=== PATIENT | female | born 2000 | race African-American/Black ===

== ENCOUNTER 2021-09-28 08:50 | Emergency (ER) | payer OTHER ==
[2021-09-28 10:14] LABS: BILIRUBIN,URINE NEGATIVE (NEGATIVE); GLUCOSE, URINE (UA) NEGATIVE (NEGATIVE); KETONES,URINE (UA) NEGATIVE (NEGATIVE); LEUKOCYTE ESTERASE, URINE NEGATIVE (NEGATIVE); NITRITE,URINE NEGATIVE (NEGATIVE); OCCULT BLOOD,URINE SMALL (NEGATIVE); PROTEIN,URINE NEGATIVE (NEGATIVE); UROBILINOGEN,URINE 0.2 (NORMAL) E.U./dL (NORMAL)
[2021-09-28 10:16] LABS: CLARITY,URINE CLEAR (CLEAR); HCG UR QUAL NEGATIVE
[2021-09-28 10:25] LABS: BACTERIA,URINE Rare /HPF (None Seen); SQUAMOUS EPITHELIAL CELL,UR FEW Squamous (<= Few); WBC,URINE 0-3 /HPF (0-5)
--- NOTE | 2021-09-28 14:39 | ED Physician Documentation ---
PD HPI FEMALE - Stated complaint Stated Complaint: ABDOMINAL PX - Chief complaint Chief Complaint: UTI - History obtained from History obtained from: Patient - Additional information Additional information: Patient is 21-year-old female presenting today with vaginal discharge as well as swollen tender mass along her right inguinal area. Reports symptoms ongoing for the last 2 weeks. Does report that she was recently sexually active with new sexual partners a few weeks ago. Denies any fever, chills, chest pain, shortness of breath, abdominal pain, nausea, vomiting, diarrhea, constipation. Review of Systems Ten Systems: 10 systems reviewed and negative Constitutional: denies: Fever Eyes: denies: Loss of vision Ears: denies: Loss of hearing GI: denies: Abdominal Pain : reports: Discharge Skin: denies: Rash PD PAST MEDICAL HISTORY - Present Medications Home Medications: Ambulatory Orders Medication Instructions Recorded Confirmed Doxycycline Hyclate 100 mg PO BID #20 tab 09/28/21 Fluconazole [Diflucan] 1 tablet PO ONCE 1 Days #1 tablet 09/28/21 - Allergies Allergies/Adverse Reactions: Allergies Allergy/AdvReac Type Severity Reaction Status Date / Time No Known Drug Allergies Allergy Verified 09/28/21 09:12 - Social History Does the pt smoke?: No Smoking Status: Never smoker PD ED PE NORMAL - Vitals Vital signs reviewed: Yes - General General: Alert and oriented X 3 - HEENT HEENT: Atraumatic - Neck Neck: Supple, no meningeal sign - Respiratory Respiratory: No respiratory distress - Abdomen Abdomen: Normal bowel sounds - Back Back: No CVA TTP - Extremities Extremities: No deformity PD ED PE EXPANDED - Female Female : Vaginal Discharge, Smalltalk Developer present Results - Vitals Vitals: Vital Signs - 24 hr 09/28/21 09/28/21 09:12 15:18 Temperature 36.9 C Heart Rate 88 74 Respiratory 16 16 Rate Blood Pressure 119/71 114/69 O2 Saturation 100 100 Oxygen O2 Source Room air - Labs Labs: Microbiology 09/28/21 10:14 Wet Prep - Final Genital - Vaginal Laboratory Tests 09/28/21 09/28/21 09:56 13:34 Urine Color YELLOW Urine Clarity CLEAR Urine pH 6.0 Ur Specific [place] 1.020 Urine Protein NEGATIVE Urine Glucose (UA) NEGATIVE Urine Ketones NEGATIVE Urine Occult Blood SMALL H Urine Nitrite NEGATIVE Urine Bilirubin NEGATIVE Urine Urobilinogen 0.2 (NORMAL) Ur Leukocyte Esterase NEGATIVE Urine RBC 6-10 H Urine WBC 0-3 Ur Squamous Epith Cells FEW Squamous Urine Bacteria Rare Ur Microscopic Review INDICATED Urine Culture Comments NOT INDICATED Urine HCG, Qual NEGATIVE C. glabrata (PCR) NEGATIVE C. krusei (PCR) NEGATIVE Renetta species DNA NEGATIVE T. vaginalis (PCR) NEGATIVE Bact Vaginosis (PCR) POSITIVE A PD MEDICAL DECISION MAKING - ED course Complexity details: reviewed results, re-evaluated patient, d/w patient ED course: Patient is otherwise healthy 21-year-old female presenting to the emergency department with vaginal discharge, as well as tender inguinal adenopathy. Afebrile, hemodynamically stable on arrival to the emergency department. Abdominal exam benign. Pelvic exam performed with monument letterer present demonstrated copious white discharge from the vaginal vault as well as a single palpable tender right sided inguinal lymph node. Swab obtained was negative for trichomonas, BV, candidiasis. Patient was given dose of Rocephin in the emergency department and covered with an ongoing course of doxycycline. Encouraged abstinence from sexual activity, and careful follow-up with primary care or return to the emergency department for new or worsening symptoms. Departure - Departure Disposition: 01 Home, Self Care Clinical Impression: Vaginal discharge, Inguinal adenopathy Condition: Fair Prescriptions: Fluconazole [Diflucan] 1 tablet PO ONCE 1 Days #1 tablet Doxycycline Hyclate 100 mg PO BID #20 tab Comments: Thank you for allowing us to care for you today at [facility]. The vaginal swab performed in the emergency department today did not show any clear indication of bacterial vaginosis, Renetta or trichomoniasis. Your gonorrhea and Chlamydia test is pending and will take approximately 1 day to come back. In the interim I would like you to begin a course of oral antibiotics. Also be discharging you with a dose of fluconazole to be taken 3 days from now 10/01/2021 in order to decrease risk for any fungal infection. Please abstain from sexual activity until your symptoms are completely healed. I do recommend that you senior vice president & general counsel your most recent sexual partners and inform them that it would be of benefit to them to be tested. If it anytime you have any new or worsening symptoms please not hesitate to return to the emergency department. Prescriptions were sent to your preferred pharmacy Discharge Date/Time: 09/28/21 15:20
[2021-09-28] MEDS: DOXYCYCLINE 100 MG TABLET PO STA (15:17)
[2021-09-28] MEDS: LIDOCAINE 1% 2 ML VIAL MC ONE (15:17)
[2021-09-28] MEDS: cefTRIAXone 500 MG VIAL IM STA (15:17)
[2021-09-28 15:20] VITALS: BP 114/69
[2021-09-28 17:48] LABS: BACTERIAL VAGINOSIS DNA POSITIVE (NEGATIVE); CANDIDA GLABRATA DNA NEGATIVE (NEGATIVE); CANDIDA GROUP DNA NEGATIVE (NEGATIVE); CANDIDA KRUSEI DNA NEGATIVE (NEGATIVE); TRICHOMONAS VAGINALIS DNA NEGATIVE (NEGATIVE)
[2021-09-28 23:01] LABS: CHLAMYDIA TRACHOMATIS DNA NEGATIVE (NEGATIVE); NEISSERIA GONORRHOEAE DNA NEGATIVE (NEGATIVE); TRICHOMONAS VAGINALIS DNA NEGATIVE (NEGATIVE)
== END 2021-09-28 15:20 | disposition home or self-care (01) ==
LOC: ED 08:50
DX: N89.8 Other specified noninflammatory disorders of vagina (principal); R59.0 Localized enlarged lymph nodes
CPT/HCPCS: 81001; 81025; 87210; 87481; 87491; 87591; 87661; 87801; 96372; 99283; A9270; 81003; 87081; 87086

== ENCOUNTER 2021-11-26 17:57 | Emergency (ER) | payer OTHER ==
[2021-11-26 20:09] LABS: RAPID STREP SCREEN Negative (Negative)
--- NOTE | 2021-11-26 20:42 | ED Physician Documentation ---
History of Present Illness - Stated complaint Stated Complaint: SORE THROAT, COLD SYMPTOMS - Chief complaint Chief Complaint: General - Additonal information Additional information: 21-year-old female here with sore throat, cough, congestion myalgias and fatigue. Fully vaccinated for COVID. Recently returned from leave. Reports multiple sick contacts. Non-smoker. No history of diabetes or pulmonary problems. Review of Systems Constitutional: reports: Myalgias, Fatigue. denies: Fever, Chills Ears: reports: Reviewed and negative Nose: reports: Congestion Throat: reports: Sore throat Respiratory: reports: Cough GI: reports: Reviewed and negative : reports: Reviewed and negative Musculoskeletal: reports: Reviewed and negative PD PAST MEDICAL HISTORY - Past Medical History Past Medical History: Yes - Past Surgical History Past Surgical History: No - Present Medications Home Medications: Ambulatory Orders Medication Instructions Recorded Confirmed Doxycycline Hyclate 100 mg PO BID #20 tab 09/28/21 Fluconazole [Diflucan] 1 tablet PO ONCE 1 Days #1 tablet 09/28/21 - Allergies Allergies/Adverse Reactions: Allergies Allergy/AdvReac Type Severity Reaction Status Date / Time No Known Drug Allergies Allergy Verified 11/26/21 18:19 - Social History Does the pt smoke?: No Smoking Status: Never smoker Does the pt drink ETOH?: Yes Does the pt have substance abuse?: No - Immunizations Immunizations are current?: Yes - POLST Patient has POLST: No PD ED PE NORMAL - General General: Alert and oriented X 3, No acute distress - HEENT HEENT: PERRL, Moist mucous membranes, Pharynx benign - Neck Neck: Supple, no meningeal sign, No adenopathy, Thyroid normal - Cardiac Cardiac: RRR, No murmur - Respiratory Respiratory: No respiratory distress - Abdomen Abdomen: Normal bowel sounds - Back Back: No CVA TTP, No spinal TTP - Derm Derm: Normal color, Warm and dry, No rash - Extremities Extremities: No deformity, No tenderness to palpate, Normal ROM s pain - Neuro Neuro: Alert and oriented X 3, podiatrist assistant 2-12 intact Eye Opening: Spontaneous Motor: Obeys Commands Verbal: Oriented GCS Score: 15 Results - Vitals Vitals: Vital Signs - 24 hr 11/26/21 18:16 Heart Rate 81 Respiratory 16 Rate Blood Pressure 111/64 O2 Saturation 97 Oxygen O2 Source Room air - Labs Labs: Laboratory Tests 11/26/21 19:55 Group A Strep Rapid Negative PD MEDICAL DECISION MAKING - ED course Complexity details: reviewed results, re-evaluated patient, considered differential, d/w patient ED course: 21-year-old female presents emergency department for evaluation of 3 days cough, congestion, fatigue and myalgias. Also reporting a sore throat. Rapid strep negative. COVID screen is pending. Unremarkable cardiopulmonary auscultation. No hypoxia. Will defer chest x-ray. Advised to maintain quarantine until COVID results are known. Departure - Departure Disposition: Home, Self Care Clinical Impression: Viral upper respiratory infection Condition: Stable Record reviewed to determine appropriate education?: Yes Instructions: ED Viral Syndrome Ch Comments: You have a Covid test pending. You need to self quarantine until the result is done and negative. Do not leave your house. Do not get near anybody. The results should be done in 48 to 72 hours. We will call with a positive result, the fastest way to get a negative result for confirmation though is to go to the hospital website at [email or web address], click on the my [facility] tab and sign up for the patient portal. If any friends or family get sick and would like to have a Covid test done, but do not have signs or symptoms that would necessitate being hospitalized, there are multiple local options for Covid testing. [facility] keeps an updated list of testing and vaccination options at [email or web address] Your rapid strep test today is negative. We will defer any antibiotics unless the culture is positive. In general treat your cough, congestion myalgias and fatigue like the common cold. Stay in quarantine but drink lots of fluids and take Tylenol or ibuprofen for any body aches. Return to the ER for severe difficulty breathing, any fainting episodes or chest pain.
[2021-11-26 21:00] VITALS: BP 101/65
== END 2021-11-26 21:01 | disposition home or self-care (01) ==
LOC: ED 17:57
DX: J06.9 Acute upper respiratory infection, unspecified (principal); Z20.822 Contact with and (suspected) exposure to COVID-19
CPT/HCPCS: 87070; 87430; 99282; 99283

== ENCOUNTER 2021-12-22 08:19 | Emergency (ER) | payer OTHER ==
[2021-12-22 09:12] LABS: BASOPHILS % (AUTO) 0.7 %; EOSINOPHILS # (AUTO) 0.1 10^3/uL (0.0-0.7); EOSINOPHILS % (AUTO) 2.1 %; HCT - HEMATOCRIT 33.3 % (37.0-47.0); LYMPHOCYTES # (AUTO) 2.2 10^3/uL (1.5-3.5); LYMPHOCYTES % (AUTO) 37.4 %; MEAN CORPUSCULAR HEMOGLOBIN 22.9 pg (27.0-31.0); MEAN CORPUSCULAR VOLUME 76.4 fL (81.0-99.0); MONOCYTES # (AUTO) 0.5 10^3/uL (0.0-1.0); MONOCYTES % (AUTO) 7.8 %; NEUTROPHILS % (AUTO) 51.8 %; PLT - PLATELET COUNT 255 10^3/uL (130-450); RED BLOOD COUNT 4.36 10^6/uL (4.20-5.40); RED CELL DISTRIBUTION WIDTH 14.1 % (12.0-15.0); WHITE BLOOD COUNT 5.8 x10^3/uL (4.8-10.8)
[2021-12-22 09:31] LABS: ACETAMINOPHEN < 10 ug/mL (10-30); ALBUMIN/GLOBULIN RATIO 1.3 (1.0-2.2); ALKALINE PHOSPHATASE 43 IU/L (42-121); ALT ALANINE AMINOTRANSFERASE 10 IU/L (10-60); AST ASPARTATE AMINOTRANSFERASE 17 IU/L (10-42); BILIRUBIN,TOTAL 0.5 mg/dL (0.2-1.0); BUN - BLOOD UREA NITROGEN 9 mg/dL (6-20); CALCIUM 8.8 mg/dL (8.5-10.3); CARBON DIOXIDE - CO2 26 mmol/L (21-32); CHLORIDE 102 mmol/L (101-111); CREATININE 0.7 mg/dL (0.4-1.0); ETOH - ETHANOL < 5.0 mg/dL; GFR - MDRD 128 (>89); GLUCOSE 90 mg/dL (70-100); LIPASE 27 U/L (22-51); POTASSIUM 3.9 mmol/L (3.5-5.0); SALICYLATE < 6.0 mg/dL; SODIUM 136 mmol/L (135-145); TOTAL PROTEIN 7.1 g/dL (6.7-8.2)
--- NOTE | 2021-12-22 09:34 | ED Physician Documentation ---
History of Present Illness - Stated complaint Stated Complaint: WEAKNESS - Chief complaint Chief Complaint: General - History obtained from History obtained from: Patient - History of Present Illness Timing: How many weeks ago (several weeks) Pain level max: 0 Pain level now: 0 - Additonal information Additional information: Patient is a 21-year-old female who presents to the emergency department stating that she has had difficulty sleeping for the past several months. She states that today she felt lightheaded when she got out of bed. She states that she felt like she was going to pass out. She states that she has had mood swings, anxiety. [place]. [place] She states that she thinks she had blood work done but does not know any results. Does not know if her thyroid has been checked. She does not want to speak to social work today. She does not want to talk about going back to therapy or any other mental health care at this time. She is not suicidal or homicidal. She h as not noticed any hair or skin changes. Denies any possibility of . She states that she just feels tired today Review of Systems Ten Systems: 10 systems reviewed and negative Constitutional: denies: Fever, Chills Nose: denies: Rhinorrhea / runny nose, Congestion Respiratory: denies: Cough GI: denies: Abdominal Pain, Nausea, Vomiting, Diarrhea : denies: Now EGA Skin: denies: Rash Neurologic: reports: Generalized weakness. denies: Focal weakness, Numbness, Headache PD PAST MEDICAL HISTORY - Past Medical History Past Medical History: Yes Psych: Anxiety - Past Surgical History Past Surgical History: No - Present Medications Home Medications: Ambulatory Orders Medication Instructions Recorded Confirmed No Known Home Medications 12/22/21 12/22/21 - Allergies Allergies/Adverse Reactions: Allergies Allergy/AdvReac Type Severity Reaction Status Date / Time No Known Drug Allergies Allergy Verified 12/22/21 08:28 - Living Situation Living Arrangement: reports: At home - Social History Does the pt smoke?: No Smoking Status: Never smoker Does the pt drink ETOH?: Yes Does the pt have substance abuse?: No - Immunizations Immunizations are current?: Yes - POLST Patient has POLST: No PD ED PE NORMAL - Vitals Vital signs reviewed: Yes - General General: Alert and oriented X 3, No acute distress, Well developed/nourished - HEENT HEENT: PERRL, Moist mucous membranes - Neck Neck: Supple, no meningeal sign - Cardiac Cardiac: RRR, Strong equal pulses - Respiratory Respiratory: No respiratory distress, Clear bilaterally - Abdomen Abdomen: Soft, Non tender, Non distended - Derm Derm: Warm and dry - Extremities Extremities: No edema, No calf tenderness / cord - Neuro Neuro: Alert and oriented X 3, slug press operator 2-12 intact, No motor deficit, No sensory deficit, Normal speech Eye Opening: Spontaneous Motor: Obeys Commands Verbal: Oriented GCS Score: 15 - Psych Psych: Normal mood, Normal affect Results - Vitals Vitals: Vital Signs - 24 hr 12/22/21 12/22/21 08:29 10:47 Temperature 36.9 C 36.3 C L Heart Rate 71 67 Respiratory 16 15 Rate Blood Pressure 98/61 127/79 O2 Saturation 100 100 Oxygen O2 Source Room air - EKG (time done) 0942 Rate: Rate (enter#) (56) Rhythm: NSR [place]: Normal Intervals: Prolonged ND QRS: Normal Ischemia: Normal ST segments - Labs Labs: Laboratory Tests 12/22/21 12/22/21 12/22/21 09:05 09:05 09:05 WBC 5.8 RBC 4.36 Hgb 10.0 L Hct 33.3 L MCV 76.4 L MCH 22.9 L MCHC 30.0 L RDW 14.1 Plt Count 255 Neut # (Auto) 3.0 Lymph # (Auto) 2.2 Fisher # (Auto) 0.5 Eos # (Auto) 0.1 Baso # (Auto) 0.0 Absolute Nucleated RBC 0.00 Nucleated RBC % 0.0 Sodium 136 Potassium 3.9 Chloride 102 Carbon Dioxide 26 Anion Gap 8.0 BUN 9 Creatinine 0.7 Estimated GFR (MDRD) 128 Glucose 90 Calcium 8.8 Total Bilirubin 0.5 AST 17 ALT 10 Alkaline Phosphatase 43 Total Protein 7.1 Albumin 4.0 Globulin 3.1 Albumin/Globulin Ratio 1.3 Lipase 27 TSH 2.14 Free T4 0.86 Urine Color Urine Clarity Urine pH Ur Specific [place] Urine Protein Urine Glucose (UA) Urine Ketones Urine Occult Blood Urine Nitrite Urine Bilirubin Urine Urobilinogen Ur Leukocyte Esterase Ur Microscopic Review Urine Culture Comments Urine HCG, Qual Salicylates < 6.0 Urine Opiates Screen Ur Oxycodone Screen Urine Methadone Screen Ur Propoxyphene Screen Acetaminophen < 10 L Ur Barbiturates Screen Ur Tricyclics Screen Ur Phencyclidine Scrn Ur Amphetamine Screen U Methamphetamines Scrn U Benzodiazepines Scrn Urine Cocaine Screen U Cannabinoids Screen Ethyl Alcohol < 5.0 12/22/21 12/22/21 09:50 09:50 WBC RBC Hgb Hct MCV MCH MCHC RDW Plt Count Neut # (Auto) Lymph # (Auto) Fisher # (Auto) Eos # (Auto) Baso # (Auto) Absolute Nucleated RBC Nucleated RBC % Sodium Potassium Chloride Carbon Dioxide Anion Gap BUN Creatinine Estimated GFR (MDRD) Glucose Calcium Total Bilirubin AST ALT Alkaline Phosphatase Total Protein Albumin Globulin Albumin/Globulin Ratio Lipase TSH Free T4 Urine Color YELLOW Urine Clarity CLEAR Urine pH 6.0 Ur Specific [place] 1.020 Urine Protein NEGATIVE Urine Glucose (UA) NEGATIVE Urine Ketones NEGATIVE Urine Occult Blood NEGATIVE Urine Nitrite NEGATIVE Urine Bilirubin NEGATIVE Urine Urobilinogen 0.2 (NORMAL) Ur Leukocyte Esterase NEGATIVE Ur Microscopic Review NOT INDICATED Urine Culture Comments NOT INDICATED Urine HCG, Qual NEGATIVE Salicylates Urine Opiates Screen NEGATIVE Ur Oxycodone Screen NEGATIVE Urine Methadone Screen NEGATIVE Ur Propoxyphene Screen NEGATIVE Acetaminophen Ur Barbiturates Screen NEGATIVE Ur Tricyclics Screen NEGATIVE Ur Phencyclidine Scrn NEGATIVE Ur Amphetamine Screen NEGATIVE U Methamphetamines Scrn NEGATIVE U Benzodiazepines Scrn NEGATIVE Urine Cocaine Screen NEGATIVE U Cannabinoids Screen POSITIVE H Ethyl Alcohol PD MEDICAL DECISION MAKING - ED course Complexity details: reviewed results, re-evaluated patient, considered differential, d/w patient ED course: Patient is well-appearing, nontoxic. Afebrile. She is in no distress. No significant lab abnormalities. No significant EKG abnormalities. Patient is asymptomatic here. Ambulating with a normal steady gait. No dizziness or lightheadedness. We will have her follow-up with her PCM for further care. Patient counseled regarding signs and symptoms for which I believe and urgent re-evaluation would be necessary. Patient with good understanding of and agreement to plan and is comfortable going home at this time This document was made in part using voice recognition software. While efforts are made to proofread this document, sound alike and grammatical errors may occur. Departure - Departure Disposition: 01 Home, Self Care Clinical Impression: Weakness Condition: Good Instructions: ED Weakness [facility] Follow-Up: SEBASTIÁN LORENZO MD [Primary Care Provider] - Within 1 week Comments: The cause of your symptoms is unclear today. Please follow-up with your doctor for further care. Your EKG and laboratory testing are unremarkable. Discharge Date/Time: 12/22/21 10:58
[2021-12-22 09:43] LABS: THYROID STIMULATING HORMONE 2.14 uIU/mL (0.34-5.60)
[2021-12-22 09:45] LABS: FREE T4 (FREE THYROXINE) 0.86 ng/dL (0.58-1.64)
[2021-12-22 10:22] LABS: MUDS CUTOFF CONCENTRATIONS CUTOFF CONC BELOW:
[2021-12-22 10:23] LABS: BILIRUBIN,URINE NEGATIVE (NEGATIVE); GLUCOSE, URINE (UA) NEGATIVE (NEGATIVE); KETONES,URINE (UA) NEGATIVE (NEGATIVE); LEUKOCYTE ESTERASE, URINE NEGATIVE (NEGATIVE); NITRITE,URINE NEGATIVE (NEGATIVE); OCCULT BLOOD,URINE NEGATIVE (NEGATIVE); PROTEIN,URINE NEGATIVE (NEGATIVE); UROBILINOGEN,URINE 0.2 (NORMAL) E.U./dL (NORMAL)
[2021-12-22 10:28] LABS: CLARITY,URINE CLEAR (CLEAR); HCG UR QUAL NEGATIVE
[2021-12-22 10:35] LABS: AMPHETAMINE SCREEN,URINE NEGATIVE (NEGATIVE); BARBITURATE SCREEN,UR NEGATIVE (NEGATIVE); BENZODIAZEPINES SCREEN, URINE NEGATIVE (NEGATIVE); COCAINE SCREEN URINE NEGATIVE (NEGATIVE); METHADONE SCREEN, URINE NEGATIVE (NEGATIVE); METHAMPHETAMINES SCREEN, URINE NEGATIVE (NEGATIVE); OPIATE SCREEN, URINE NEGATIVE (NEGATIVE); OXYCODONE SCREEN, URINE NEGATIVE (NEGATIVE); PROPOXYPHENE SCREEN, URINE NEGATIVE (NEGATIVE); THC CANNABINOID SCREEN, URINE POSITIVE (NEGATIVE); TRICYCLIC ANTIDEPRESSANT,URINE NEGATIVE (NEGATIVE)
[2021-12-22 10:47] VITALS: BP 127/79
== END 2021-12-22 10:58 | disposition home or self-care (01) ==
LOC: ED 08:19
DX: R53.1 Weakness (principal)
CPT/HCPCS: 36415; 80053; 80306; 80307; 80320; 80329; 81001; 81003; 81025; 83690; 84439; 84443; 85025; 87086; 93005; 99282; 99283

== ENCOUNTER 2023-06-01 08:00 | Outpatient (CLI) | payer OTHER | END 2023-06-01 23:59 | disposition home or self-care (01) | LOC: LAB.R 08:00 | PROVIDERS: ATTEND Nurse Practitioner | DX: R07.0 Pain in throat (principal) | CPT/HCPCS: 87070 ==